=== PATIENT | female | born 1940 | race African-American/Black ===

== ENCOUNTER 2019-01-23 17:35 | Emergency (ER) | payer OTHER ==
[~2019-01-23] VITALS: Ht 167.6 cm; Wt 68.0 kg
[2019-01-23] MEDS ORDERED: ASPIRIN 81MG TABLET PO ONE (18:30)
[2019-01-23 18:53] LABS: BASOPHILS % 0.6 % (0.0-2.0); EOSINOPHILS % 2.3 % (0.0-5.0); HEMATOCRIT. 29.8 % (36.0-48.0); HEMOGLOBIN. 9.7 g/dL (12.0-16.0); MEAN CORPUSCULAR HEMOGLOBIN 32.2 pg (28.0-32.0); MEAN CORPUSCULAR VOLUME 98.7 fL (81.0-99.0); MEAN PLATELET VOLUME 7.9 fl (7.4-10.4); MONOCYTES % 11.7 % (2.0-8.0); NEUTROPHILS % 70.4 % (40.0-76.0); PLATELET 143 x1000/uL (130-400); RED BLOOD CELL COUNT 3.02 mill/uL (4.2-5.4); RED CELL DISTRIBUTION WIDTH 16.7 % (11.6-14.6)
[2019-01-23 18:54] LABS: CHLORIDE 113 mEq/L (98-107)
[2019-01-23 19:01] LABS: D-DIMER 0.59 mg/L FEU (<0.50); INR 1.2; PARTIAL THROMBOPLASTIN TIME 32.2 sec (23.4-31.0)
[2019-01-23] MEDS ORDERED: FUROSEMIDE 40MG/4ML VIAL IVP ONE (19:45)
[2019-01-23] MEDS ORDERED: IOHEXOL-350 100 ML BOTTLE ONE ×2 (20:56→20:58)
[2019-01-23] MEDS ORDERED: NITROGLYCERIN 50MG PREMIX 250 ML IV ONE (22:00)
[2019-01-24 01:13] VITALS: BP 137/87
== END 2019-01-24 01:29 | disposition short-term general hospital (02) ==
LOC: ER 17:35 → CANBEDREQ 01-24 02:23
DX: I11.0 Hypertensive heart disease with heart failure (principal); I50.9 Heart failure, unspecified; I71.00 Dissection of unspecified site of aorta; E11.9 Type 2 diabetes mellitus without complications; J44.9 Chronic obstructive pulmonary disease, unspecified; Z85.3 Personal history of malignant neoplasm of breast; Z90.12 Acquired absence of left breast and nipple; Z92.21 Personal history of antineoplastic chemotherapy; Z92.3 Personal history of irradiation
CPT/HCPCS: 36415; 71045; 71275; 80053; 83880; 84484; 85025; 85379; 85610; 85730; 93005; 93970; 96365; 96375; 99291; J1940; J3490; Q9967

== ENCOUNTER 2019-10-06 06:26 | Emergency (ER) | payer OTHER ==
[~2019-10-06] VITALS: Ht 167.6 cm; Wt 73.0 kg
[2019-10-06] MEDS ORDERED: SODIUM CHLORIDE 0.9% 1,000 ML IV ONE (07:02)
[2019-10-06] MEDS ORDERED: KETOROLAC 15MG/ML VIAL IV ONE (07:15)
[2019-10-06 07:36] LABS: BASOPHILS % 0.7 % (0.0-2.0); EOSINOPHILS % 1.9 % (0.0-5.0); HEMATOCRIT. 36.2 % (36.0-48.0); HEMOGLOBIN. 12.1 g/dL (12.0-16.0); LYMPHOCYTES % 16.8 % (20.0-50.0); MEAN CORPUSCULAR VOLUME 99.1 fL (81.0-99.0); MEAN PLATELET VOLUME 8.1 fl (7.4-10.4); MONOCYTES % 10.3 % (2.0-8.0); NEUTROPHILS % 70.3 % (40.0-76.0); PLATELET 178 x1000/uL (130-400); RED BLOOD CELL COUNT 3.65 mill/uL (4.2-5.4); RED CELL DISTRIBUTION WIDTH 14.3 % (11.6-14.6)
[2019-10-06 07:40] LABS: CHLORIDE 108 mEq/L (98-107)
[2019-10-06] MEDS ORDERED: HYDRALAZINE 20MG/ML VIAL IV ONE (18:30)
[2019-10-06 20:20] VITALS: BP 160/79
== END 2019-10-06 20:20 | disposition short-term general hospital (02) ==
LOC: ER 06:26
DX: R53.1 Weakness (principal); E86.0 Dehydration; G93.89 Other specified disorders of brain; G51.0 Bell's palsy; G90.8 Other disorders of autonomic nervous system; E11.9 Type 2 diabetes mellitus without complications; I10 Essential (primary) hypertension; J44.9 Chronic obstructive pulmonary disease, unspecified; Z85.9 Personal history of malignant neoplasm, unspecified
CPT/HCPCS: 36415; 70450; 70551; 71045; 74018; 80053; 82962; 84484; 85025; 93005; 96374; 96375; 99285; J0360; J1885; J7030

== ENCOUNTER 2020-02-20 17:01 | Emergency (ER) | payer OTHER ==
[~2020-02-20] VITALS: Ht 170.2 cm; Wt 58.0 kg
[2020-02-20] MEDS ORDERED: SODIUM CHLORIDE 0.9% 1,000 ML IV ONE (17:39)
[2020-02-20] MEDS ORDERED: LORAZEPAM 2MG/ML CPJ IV ONE (17:45)
[2020-02-20 17:55] LABS: BASOPHILS % 0.9 % (0.0-2.0); EOSINOPHILS % 1.1 % (0.0-5.0); HEMATOCRIT. 37.6 % (36.0-48.0); HEMOGLOBIN. 12.4 g/dL (12.0-16.0); LYMPHOCYTES % 19.8 % (20.0-50.0); MEAN CORPUSCULAR HEMOGLOBIN 30.4 pg (28.0-32.0); MEAN CORPUSCULAR VOLUME 91.8 fL (81.0-99.0); MEAN PLATELET VOLUME 8.2 fl (7.4-10.4); MONOCYTES % 9.4 % (2.0-8.0); NEUTROPHILS % 68.8 % (40.0-76.0); PLATELET 295 x1000/uL (130-400); RED CELL DISTRIBUTION WIDTH 15.8 % (11.6-14.6)
[2020-02-20 18:01] LABS: CHLORIDE 109 mEq/L (98-107)
[2020-02-20 18:04] LABS: INR 0.9; PROTHROMBIN TIME 10.3 sec (9.6-11.0)
[2020-02-20 18:09] LABS: CLARITY URINE CLOUDY (CLEAR); COLOR URINE DARK YELLOW (YELLOW); KETONES URINE TRACE (NEGATIVE); LEUKOCYTE ESTERASE URINE 2+ (NEGATIVE); NITRITE URINE POSITIVE (NEGATIVE); OCCULT BLOOD URINE NEGATIVE (NEGATIVE); PROTEIN URINE 1+ (NEGATIVE); SPECIFIC GRAVITY URINE 1.017 (1.005-1.030)
[2020-02-20] MEDS ORDERED: PIPERACILLIN/TAZ 3.375G PREMIX 50 ML IV ONE (18:15)
[2020-02-20 19:34] VITALS: BP 114/78
[2020-02-20] MEDS ORDERED: ASPIRIN 300MG SUPP PR ONE (19:45)
== END 2020-02-20 20:23 | disposition short-term general hospital (02) ==
LOC: ER 17:08 → EDBEDREQTM 18:20 → EDBEDREQ 18:20 → ER 20:23 → CANBEDREQ 21:41
DX: A41.9 Sepsis, unspecified organism (principal); I21.3 ST elevation (STEMI) myocardial infarction of unspecified site; G93.49 Other encephalopathy; N39.0 Urinary tract infection, site not specified; G40.909 Epilepsy, unspecified, not intractable, without status epilepticus; I69.354 Hemiplegia and hemiparesis following cerebral infarction affecting left non-dominant side; Z85.9 Personal history of malignant neoplasm, unspecified; Z98.890 Other specified postprocedural states
CPT/HCPCS: 36415; 70450; 71045; 80053; 81003; 83605; 84145; 84484; 85025; 85610; 87040; 87077; 87086; 87186; 93005; 96374; 96375; 99291; J2060; J2543; J7030